=== PATIENT | female | born 1955 | race Native Hawaiian/Other Pacific Islander ===

== ENCOUNTER 2018-01-03 09:51 | Day surgery (SDC) | payer OTHER ==
[2018-01-03 10:43] LABS: PLATELET COUNT 211 K/uL (152-353)
[2018-01-03 11:00] LABS: POTASSIUM 3.1 mmol/L (3.6-5.2)
== END 2018-01-03 13:02 | disposition home or self-care (01) ==
LOC: OR 09:51
PROVIDERS: Internal Medicine Gastroenterology
PROC: 0DJD8ZZ Inspection of Lower Intestinal Tract, Via Natural or Artificial Opening Endoscopic (ICD-10-PCS; principal; 2018-01-03)
DX: K64.8 Other hemorrhoids (principal); Z80.0 Family history of malignant neoplasm of digestive organs; Z12.11 Encounter for screening for malignant neoplasm of colon
CPT/HCPCS: G0121; 80053; 85027; J2001; J2704

== ENCOUNTER 2018-12-04 11:16 | Outpatient (CLI) | payer OTHER | END 2018-12-04 23:47 | disposition home or self-care (01) | LOC: LABW 11:16 | DX: L40.59 Other psoriatic arthropathy (principal); L40.8 Other psoriasis; M85.89 Other specified disorders of bone density and structure, multiple sites; Z79.899 Other long term (current) drug therapy ==

== ENCOUNTER 2019-08-27 09:17 | Outpatient (CLI) | payer OTHER | END 2019-08-27 21:28 | disposition home or self-care (01) | LOC: RAD 09:17 | DX: E55.9 Vitamin D deficiency, unspecified (principal); E56.8 Deficiency of other vitamins; L40.59 Other psoriatic arthropathy; L40.8 Other psoriasis; M85.89 Other specified disorders of bone density and structure, multiple sites ==

== ENCOUNTER 2019-10-01 09:33 | Outpatient (CLI) | payer OTHER | END 2019-10-01 21:23 | disposition home or self-care (01) | LOC: MAMMO 09:33 | DX: Z85.3 Personal history of malignant neoplasm of breast (principal) | CPT/HCPCS: G0279 ==

== ENCOUNTER 2019-11-01 10:16 | Outpatient (CLI) | payer OTHER | END 2019-11-01 20:38 | disposition home or self-care (01) | LOC: MAMMO 10:16 | DX: N64.59 Other signs and symptoms in breast (principal) ==

== ENCOUNTER 2020-08-11 15:34 | Outpatient (CLI) | payer OTHER | END 2020-08-11 22:46 | disposition home or self-care (01) | LOC: RAD 15:34 | PROVIDERS: ATTEND Internal Medicine | DX: R05 Cough (principal) ==